=== PATIENT | male | born 1955 | race Caucasian/White ===

== ENCOUNTER → 2017-05-08 | Outpatient (CLI) | payer OTHER ==
[~2017-05-08] MED LIST: ALBUTEROL SULFATE 0.083% NEB 2.5 MG/3 ML AMPUL NEB ONE
--- NOTE | 2017-05-13 13:42 | Pulmonary Function Test ---
Pulmonary Function Test Date of Procedure:: 05/08/17 INDICATION:: dyspnea Referring Provider: Cargo Inspector: Yvette Blanchard CLINICAL TRIAL MANAGER - Report Spirometry: FVC 3.66 L 69% postbronchodilator therapy 3.76 L 71% FEV1 1.39 L 33% postbronchodilator therapy 1.53 L 36% FEV1/FVC % 38 postbronchodilator therapy 41 predicted 79 FEF 25-75% 0.44 L 11% postbronchodilator therapy 0.60 L 14% Diffusion capacity 9.1 33% DLCO/VA 1.93 50% Impression: This study demonstrates severe obstructive ventilatory defect with insignificant response to bronchodilator therapy this in and of itself does not preclude a clinical trial of bronchodilator therapy. Diffusion capacity is also severely restricted.
== END ==
LOC: RT 11:47
PROVIDERS: ATTEND General Practice
DX: J44.9 Chronic obstructive pulmonary disease, unspecified (principal); D64.9 Anemia, unspecified; I10 Essential (primary) hypertension
CPT/HCPCS: 94060; 94729